=== PATIENT | male | born 1970 | race Caucasian/White ===

== ENCOUNTER 2022-01-27 19:50 | Inpatient (IN) ==
[2022-01-27 20:40] LABS: Appearance Urine Clear (Clear); Bacteria Urine Automated Negative (Negative); Bilirubin Urine Negative (Negative); Blood Urine Trace (Negative); Color Urine Orange; Glucose Urine UA Negative (Negative); Ketones Urine Trace (Negative); Leukocyte Esterase Urine 1+ (Negative); Nitrite Urine Positive (Negative); Protein Urine 3+ (Negative); Specific Gravity Urine 1.026 (1.000-1.030); Urobilinogen Urine Negative (Negative); pH Urine 7.5 (4.5-7.5)
[2022-01-27 20:41] LABS: Basophils # (auto) 0.04 K/uL (0-0.2); Basophils % (auto) 0.2 %; Eosinophils # (auto) 0.02 K/uL (0-0.5); Eosinophils % (auto) 0.1 %; Hematocrit (blood only) 49.9 % (42-52); Immature Granulocytes # (auto) 0.13 K/uL (0.00-0.02); Immature Granulocytes % (auto) 0.6 %; Lymphocytes # (auto) 2.24 K/uL (1.2-3.4); Lymphocytes % (auto) 9.8 %; Mean Corpuscular Hgb Conc 34.1 g/dL (32-36); Mean Corpuscular Volume 91.1 fL (80-100); Mean Platelet Volume 11.4 fL (7.4-10.4); Monocytes # (auto) 1.72 K/uL (0.11-0.59); Monocytes % (auto) 7.5 %; Neutrophils # (auto) 18.66 K/uL (1.4-6.5); Neutrophils % (auto) 81.8 %; Platelet Count 257 K/uL (130-400); RDW Coefficient of Variation 12.9 % (11.5-14.5); RDW Standard Deviation 43.2 fL (36.4-46.3); Red Blood Count 5.48 M/uL (4.7-6.1); White Blood Count 22.81 K/uL (4.8-10.8)
[2022-01-27 21:03] LABS: Albumin Globulin Ratio 1.3 (0.9-2); Albumin Level 4.4 gm/dl (3.4-5.0); Calcium 9.6 mg/dl (8.5-10.1); Creatinine Clr Calc Pharmacy 96.5 ml/min; Est GFR (African American) 86.1 ml/min; Est GFR (Non-African American) 74.3 ml/min; Globulin 3.5 gm/dl (2.5-4.0); Potassium 3.7 mmol/L (3.5-5.1); Total Protein 7.9 gm/dl (6.0-8.3)
[2022-01-27] MEDS ORDERED: ONDANSETRON INJ 2 MG/ML 2 ML VIAL IV STA (21:21)
[2022-01-27] MEDS ORDERED: MoRPHine SULFATE 4 MG/ML 1 ML CARP\\VIAL IV STA (21:54)
[2022-01-27] MEDS ORDERED: ACETAMINOPHEN 1,000 MG/100 ML VIAL IV STA (21:54)
[2022-01-27] MEDS ORDERED: OPTIRAY 320 100ml IV ONE (22:29)
--- NOTE | 2022-01-27 22:47 | CT Scan Report ---
CT SCAN OF THE ABDOMEN AND PELVIS WITH IV CONTRAST CLINICAL HISTORY: Lower abdominal pain. COMPARISON STUDY: No priors. TECHNIQUE: Following the IV administration of 95 cc of Optiray 320, CT scan of the abdomen and pelvi s is performed from the lung bases to the proximal femora. Images are reviewed in the axial, sagittal , and coronal planes. IV contrast was administered without complication. A dose lowering technique wa s utilized adhering to the principles of ALARA. CT DOSE: 1023.43 mGy.cm FINDINGS: Lung bases: The heart is normal in size and without pericardial effusion. The lung bases are clear no ting bibasilar atelectasis. A small hiatal hernia is noted. Liver: The contrast-enhanced liver is enlarged, measuring 21.1 cm in length. The liver demonstrates d iffusely diminished attenuation consistent with severe hepatic steatosis. Fatty sparing is seen adjac ent to gallbladder fossa. There is no intrahepatic biliary ductal dilatation. The hepatic veins and p ortal veins are patent. Gallbladder: Unremarkable. Spleen: Normal in size and attenuation. Pancreas: Unremarkable. Adrenal glands: Unremarkable. Kidneys: The contrast enhanced kidneys are normal in size and without hydronephrosis. The kidneys enh ance symmetrically. A 3.3 cm cyst is noted in the interpolar left kidney. Abdominal vasculature: The abdominal aorta is normal in course and caliber noting scattered foci of a therosclerotic calcification. Bowel: There is moderate to advanced colonic diverticulosis. There is wall thickening with pericoloni c inflammation and surrounding fluid involving the proximal sigmoid colon consistent with severe acut e diverticulitis. There are foci of extraluminal gas about the sigmoid colon seen on images #270, #27 2, and #274 indicating perforation. Phlegmonous change is seen in the left lower quadrant. No organiz ed/drainable fluid collection is identified to indicate abscess. There is no bowel obstruction. The a ppendix is well-visualized and normal. Peritoneum: There is a small amount of free fluid in the left paracolic gutter and the left lower felipa drant. Tiny foci of extraluminal gas are seen in the left lower quadrant as above. Lymphadenopathy: None. Pelvic viscera: The bladder, prostate, and seminal vesicles are normal as visualized. Skeletal structures: There are bilateral pars defects at L5 with grade 1 anterolisthesis and severe d isc space narrowing at L5-S1. No lytic or blastic lesions are seen. IMPRESSION: 1. Findings are consistent with acute perforated diverticulitis of the proximal sigmoid colon as deta iled above. 2. There is phlegmonous change in the right lower quadrant with no organized/drainable fluid collecti on at this time to indicate abscess 3. A small amount of free fluid in the left paracolic gutter and pelvis is likely reactive. 4. Hepatomegaly and severe hepatic steatosis. 5. Additional findings as above. ACT 112: Negative or not required by law. Electronically signed by: Rodger Roberts M.D. 01/27/2022 10:45 PM
[2022-01-27] MEDS ORDERED: PIPERACILLIN/TAZOBACTAM 4.5 GM/120 ML BAG IV ONE (23:14)
[2022-01-27] MEDS ORDERED: PIPERACILL/TAZOBAC CONSULT ACTIVE PRN (23:14)
[2022-01-27] MEDS ORDERED: MoRPHine SULFATE 4 MG/ML 1 ML CARP\\VIAL IV PRN (23:14)
[2022-01-27] MEDS ORDERED: SODIUM CHLORIDE 0.9% 1000ML 1,000 ML IV SCH (23:15)
--- NOTE | 2022-01-27 23:35 | Surgery Consultation ---
Date of Consultation January 27, 2022 Assessment & Plan (1) Diverticulitis: I discussed with the treating emergency room physician and she notes she is planning on having the hospitalist admit the patient. We recommend proceeding as follows: Implement n.p.o. status (patient may have an occasional ice chip only) Provide IV fluid for hydration Provide analgesics Provide antiemetics Implement broad-spectrum antibiotics. The treating emergency room physician has already ordered Zosyn which I recommend continuing Follow serial labs We will monitor the patient's clinical progress. I discussed with him that we would like to avoid emergency surgery as this may require temporary colostomy and if patient does eventually require surgery for recurrent diverticulitis would be preferable to do when he does not have active diverticulitis present. If that is the patient clinically improves we would then consider advancing his diet beginning with clear liquids. If the patient does not clinically improve consideration can be given to reimaging him. Additional recommendations be forthcoming based on his clinical course as it unfolds Supervising Physician Co-Signing Physician Notes I personally saw and evaluated the patient with Angel Grimes PA-C and agree with the assessment and plan 51-year-old male with acute sigmoid diverticulitis with contained perforation CT images and results personally viewed by me, no free air but does have a significant amount of inflammation of the sigmoid as well as a small bit of free fluid in the left paracolic gutter We will plan to admit the patient, keep him n.p.o., start Zosyn and monitor his abdominal exam If he does not improve he may require laparotomy and colostomy History of Present Illness Reason for Consultation: Abdominal pain History of Present Illness This is a 51-year-old male who presented to the emergency department secondary to abdominal pain.Patient says that he began having abdominal pain 1 to 2 days ago and he went to see his primary care physician as he was concerned he had diverticulitis as he has had this in the past. Patient says that he was started on Cipro and Flagyl but this was ineffective at improving his pain and therefore he presented to the emergency department. Patient says that the pain encompasses his entire lower abdomen and is worse with certain movements and feels somewhat better when laying still. He notes that the pain does not radiate. He has had subjective fevers but admits he did not take his temperature. He has had nausea without vomiting. He denies any hematemesis. He denies any diarrhea, bright blood per rectum or melena. As noted the patient has had diverticulitis in the past and the patient says that he has had a colonoscopy within the past 3 years. He notes that to the best of his knowledge the only significant finding on his colonoscopy was diverticulosis. Concerning prior abdominal surgeries the patient notes that he has had an umbilical hernia repair but he is unsure if there is any mesh in his abdomen. Today in the emergency department the patient had labs and imaging which I independently reviewed. He did undergo a CT scan of the abdomen pelvis that showed patient had findings consistent with acute perforated diverticulitis of the proximal sigmoid colon. There were phlegmonous changes noted in the left lower quadrant however no organized double or drainable fluid collection to indicate abscess was noted. Pericolonic inflammation and wall thickening of the proximal sigmoid colon. A tiny foci of extraluminal gas was also noted in the left lower quadrant. Patient CBC showed a white blood cell count of 22.8. His hemoglobin, hematocrit, and platelet count were noted to be normal. Chemistry profile showed sodium was 135. Potassium, BUN, and creatinine were all normal. At the time of my interview patient was in no distress. He did have abdominal pain present with movement. Allergies Allergy/AdvReac Type Severity Reaction Status Date / Time Penicillins Allergy Unknown Rash Verified 01/27/22 23:38 Home Medications Medication Instructions Recorded Confirmed Type losartan 50 mg tablet 50 mg PO DAILY 12/05/21 01/27/22 History pantoprazole 40 mg tablet,delayed 40 mg PO DAILY 12/05/21 01/27/22 History release acetaminophen 500 mg tablet 1,000 mg PO Q6H PRN 01/27/22 01/27/22 History (Tylenol Extra Strength) ascorbic acid (vitamin C) 250 mg 0 mg PO DAILY 01/27/22 01/27/22 History tablet (Vitamin C) cholecalciferol (vitamin D3) 25 0 mcg PO DAILY 01/27/22 01/27/22 History mcg (1,000 unit) tablet (Vitamin D3) ciprofloxacin HCl 500 mg tablet 500 mg PO BID 01/27/22 01/27/22 History coenzyme Q10 30 mg capsule (CoQ-10) 0 mg PO DAILY 01/27/22 01/27/22 History metronidazole 500 mg tablet 500 mg PO Q8 04/29/22 04/29/22 History multivitamin 1 tab PO DAILY 01/27/22 01/27/22 History Patient History Medical History Diverticulosis Enlarged liver Fatigue GERD (gastroesophageal reflux disease) Hiatal hernia HTN (hypertension) Insomnia Psoriasis SLAP (superior labrum from anterior to posterior) tear Surgical History Hx of umbilical hernia repair Family History Father Diabetes Stroke ASCVD (arteriosclerotic cardiovascular disease) Mother Diabetes Hypertension Thyroid disease Grandmother (Maternal) Lymphoma Social History Smoking Status: Never smoker Hx Alcohol Use: No Hx Substance Use: No 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 Real Estate Required: No Beliefs That Will Affect Care: None Current Living Situation: Spouse current occupational status: retired How many Children do You have: 3 Feels Safe at Home: Yes Safety Concerns: Feels Safe At This Time Assistive Devices: Glasses Review of Systems Constitutional: + fever; no chills Eyes: no diplopia Ear, Nose, Mouth, Throat: no ear pain Respiratory: no cough Cardiovascular: no chest pain Gastrointestinal: as per Subjective / HPI, + abdominal pain and + nausea; no vomiting Genitourinary: no dysuria Musculoskeletal: no back pain Integumentary: no rash Neurologic: no localized weakness Physical Exam Constitutional: WD/WN, vitals as above Eyes: no conjunctival abnormality ENMT: Ears: no hearing impairment and no external ear abnormality Mouth: no oropharynx abnormality Neck: trachea midline Respiratory: normal respiratory effort; no respiratory distress and no labored breathing Cardiovascular: Rate/Rhythm: regular rate and regular rhythm Gastrointestinal (Abdomen): Patient's abdomen is mildly distended. Patient has significant tenderness with palpation of the left lower quadrant with some minor rebound tenderness. Not appreciate any masses organomegaly. Bowel sounds are hypoactive. Musculoskeletal: No calf tenderness Skin: no rashes Neurologic: moves all extremities Psychiatric: A+Ox3, euthymic affect Results & Data ([facility]) Vital Signs (Past 12 Hours) Vital Signs Temp Pulse Pulse Resp BP BP Pulse Ox 01/27/22 23:00 37.0 C 116 H 19 128/74 97 01/27/22 21:28 37.1 C 99 H 18 154/124 H 100 01/27/22 20:06 36.8 C 129 H 20 146/90 H 97 PG Care Time/CCT Total # of Minutes Spent Total Time Spent with Patient: Total time spent is greater than 50% in coordination of care (as documented) at patient's floor/unit and/or counseling patient: Coding Level of Care Code 59378 Inpt Consult Level 5 Diagnoses Diverticulitis K57.92
--- NOTE | 2022-01-27 23:36 | Emergency Department Note ---
History of Present Illness General Chief complaint: GI Assessment Stated complaint: ABDOMINAL PAIN, VOMITING Time Seen by Provider: 01/27/22 21:39 Source: patient Mode of arrival: ambulatory Limitations: no limitations History of Present Illness Provider complaint: Abdominal pain Onset (ago): day(s) 2 Location: abdomen Radiation: non-radiation Severity: moderate Pain Consistency: + constant Maximum Pain Intensity: 4 Relieved By: + none Exacerbated By: + movement Associated symptoms: + fever/chills, + loss of appetite and + nausea/vomiting Treatments prior to arrival: other This is a 51-year-old male presents emergency department complaining of abdominal pain. Patient states that his abdominal pain began on . He states he did go to his PCPs it felt similar to prior episodes of diverticulitis and he was started on Cipro and Flagyl. He states typically his symptoms improve after 1 or 2 doses of the antibiotics however his pain has been persistent and he feels worsening. He states while his entire lower abdomen hurts it is most severe in the left lower quadrant. No radiation into the back. Patient has had subjective fevers and chills and some nausea. He states he did try to induce vomiting without any improvement. He denies any diarrhea. He den ies any change in urine. He states he has previously had EGD and colonoscopy. He states it has been several years as he was typically being scoped in [place] every 3 years. He states he is a prior history of hiatal hernia. No other prior abdominal surgery. Patient denies any prior hospitalization for diverticulitis. Pt seen during a time of high acuity and national emergency pandemic while wearing PPE. Home Medications Medication Instructions Recorded Confirmed Type losartan 50 mg tablet 50 mg PO DAILY 12/05/21 01/27/22 History pantoprazole 40 mg tablet,delayed 40 mg PO DAILY 12/05/21 01/27/22 History release acetaminophen 500 mg tablet 1,000 mg PO Q6H PRN 01/27/22 01/27/22 History (Tylenol Extra Strength) ascorbic acid (vitamin C) 250 mg 0 mg PO DAILY 01/27/22 01/27/22 History tablet (Vitamin C) cholecalciferol (vitamin D3) 25 0 mcg PO DAILY 01/27/22 01/27/22 History mcg (1,000 unit) tablet (Vitamin D3) ciprofloxacin HCl 500 mg tablet 500 mg PO BID 01/27/22 01/27/22 History coenzyme Q10 30 mg capsule (CoQ-10) 0 mg PO DAILY 01/27/22 01/27/22 History metronidazole 500 mg tablet 500 mg PO Q8 01/27/22 01/27/22 History multivitamin 1 tab PO DAILY 01/27/22 01/27/22 History Allergies Allergy/AdvReac Type Severity Reaction Status Date / Time Penicillins Allergy Unknown Rash Verified 01/27/22 23:38 Past Med/Surg History Medical History Diverticulosis Enlarged liver Fatigue GERD (gastroesophageal reflux disease) Hiatal hernia HTN (hypertension) Insomnia Psoriasis SLAP (superior labrum from anterior to posterior) tear Surgical History Hx of umbilical hernia repair Family History Father Diabetes Stroke ASCVD (arteriosclerotic cardiovascular disease) Mother Diabetes Hypertension Thyroid disease Grandmother (Maternal) Lymphoma Social History Smoking Status: Never smoker Preferred Language: Israeli current occupational status: retired How many Children do You have: 3 Feels Safe at Home: Yes Review of Systems A total of 10 systems reviewed and were otherwise negative All systems reviewed & are unremarkable except as noted in HPI & below Physical Exam Vital Signs Vital Signs - 24 hr 01/27/22 20:06 01/27/22 21:28 01/27/22 23:00 Temperature 36.8 C 37.1 C 37.0 C Temperature Source Temporal Artery Scan Oral Oral Pulse Rate 129 H Pulse Rate [Finger] 99 H 116 H Pulse Rhythm [Finger] Regular Regular Pulse Strength [Finger] Normal Normal Respiratory Rate 20 18 19 Respiratory Effort / Characteristics Non-Labored Spontaneous Non-Labored Spontaneous Non-Labored Spontaneous Respiratory Depth Normal Normal Normal Respiratory Pattern Regular Blood Pressure 146/90 H Blood Pressure [Right Arm] 154/124 H 128/74 Blood Pressure Mean 108 Blood Pressure Mean [Right Arm] 134 92 Blood Pressure Position Sitting Pulse Oximetry 97 100 97 Oxygen Delivery Method Room Air Room Air Room Air Sepsis Recent Fever Within 48 Hours No Sepsis New/Unexplained Change in Mental Status No Sepsis Action Taken by Nursing No Action Required 01/28/22 00:48 Temperature 36.8 C Temperature Source Oral Pulse Rate Pulse Rate [Finger] 102 H Pulse Rhythm [Finger] Regular Pulse Strength [Finger] Respiratory Rate 16 Respiratory Effort / Characteristics Non-Labored Respiratory Depth Normal Respiratory Pattern Blood Pressure Blood Pressure [Right Arm] 120/66 Blood Pressure Mean Blood Pressure Mean [Right Arm] 84 Blood Pressure Position Pulse Oximetry 95 Oxygen Delivery Method Room Air Sepsis Recent Fever Within 48 Hours Sepsis New/Unexplained Change in Mental Status Sepsis Action Taken by Nursing GENERAL: alert, uncomfortable appearing, well nourished, no distress, non-toxic EYE EXAM: normal conjunctiva, PERRL and EOM's grossly intact OROPHARYNX: no exudate, no erythema, lips, buccal mucosa, and tongue normal and mucous membranes are moist NECK: supple, no nuchal rigidity, no adenopathy, non-tender LUNGS: Clear to auscultation. Normal chest wall mechanics, no w/r/r HEART: no murmurs, S1 normal and S2 normal ABDOMEN: abdomen soft, mild distention, pain with palpation across the lower a bdomen worse in the left lower quad, dull to percussion, decreased bowel sounds, no masses, no rebound or guarding. BACK: Back is symmetrical on inspection and there is no deformity, no midline tenderness, no CVA tenderness. SKIN: no rashes and no bruising UPPER EXTREMITIES: upper extremities are grossly normal. FROM, nml pulses b/l. LOWER EXTREMITIES: No pitting edema. FROM, nml pulses b/l. NEURO EXAM: Normal sensorium, cranial nerves II-XII grossly intact, normal speech, no gross weakness of arms, no gross weakness of legs. Gross sensation intact. Course Course 2325: Discussed with Zheng Motta PA-C, general surgery. 2330: Patient updated on results. 2345: Case discussed with hospitalist. Administered Medications Sodium Chloride (Nss 1000ml) 1,000 mls @ 125 mls/hr IV .Q8H SHARMILA Stop: 02/26/22 23:14 Last Infusion: 01/28/22 01:23 Dose: 0 mls/hr Documented by: [id number] Infusion: 01/28/22 00:42 Dose: 125 mls/hr Documented by: [id number] Admin: 01/27/22 23:27 Dose: 125 mls/hr Documented by: [id number] Lactated Ringer's (Lr) 1,000 mls @ 125 mls/hr IV .Q8H SHARMILA Stop: 02/26/22 23:53 Last Admin: 01/28/22 00:32 Dose: 125 mls/hr Documented by: [id number] Morphine Sulfate (Morphine Sulfate 4 Mg/Ml 1 Ml Carp\Vial) 4 mg IV Q2H PRN PRN Reason: Pain Stop: 02/10/22 23:13 Last Admin: 01/28/22 00:43 Dose: 4 mg Documented by: [id number] Discontinued Medications Acetaminophen (Ofirmev) 1,000 mg in 100 mls @ 400 mls/hr IV NOW STA Stop: 01/27/22 22:08 Last Infusion: 01/27/22 23:09 Dose: 0 mls/hr Documented by: [id number] Admin: 01/27/22 22:16 Dose: 400 mls/hr Documented by: [id number] Piperacillin Sod/Tazobactam Sod (Zosyn) 4.5 gm in 120 mls @ 240 mls/hr IV NOW ONE Stop: 01/27/22 23:43 Last Infusion: 01/28/22 00:04 Dose: 0 mls/hr Documented by: [id number] Admin: 01/27/22 23:27 Dose: 240 mls/hr Documented by: [id number] Ioversol (Optiray 320 100ml) 95 ml IV ONCE ONE Stop: 01/27/22 22:30 Last Admin: 01/27/22 22:30 Dose: 95 ml Documented by: [id number] Morphine Sulfate (Morphine Sulfate 4 Mg/Ml 1 Ml Carp\Vial) 4 mg IV NOW STA Stop: 01/27/22 21:55 Last Admin: 01/27/22 22:16 Dose: 4 mg Documented by: [id number] Ondansetron HCl (Ondansetron Inj 2 Mg/Ml 2 Ml Vial) 4 mg IV NOW STA Stop: 01/27/22 21:22 Last Admin: 01/27/22 21:27 Dose: 4 mg Documented by: [id number] Medical Decision Making Differential Diagnosis Differential diagnoses includes but is not limited to gastritis, peptic ulcer disease, GERD, gallbladder disease, pancreatitis, small bowel obstruction, acute coronary syndrome, pericarditis, ischemic bowel, irritable bowel disease, irritable bowel syndrome, appendicitis, diverticulitis, malignancy, hernia, urinary tract infection, torsion, [/ectopic (if female)], perforation, trauma, infectious. Medical Records Attestation: I reviewed the patient's medical records. Home Medications Current Medication List: was personally reviewed by me Laboratory Data Attestation: I reviewed the patient's lab results. Result diagrams: 01/27/22 20:24 01/27/22 20:24 Lab Results 01/27/22 01/27/22 01/27/22 Range/Units 20:19 20:24 20:24 WBC 22.81 H (4.8-10.8) K/uL RBC 5.48 (4.7-6.1) M/uL Hgb 17.0 (14.0-18.0) g/dL Hct 49.9 (42-52) % MCV 91.1 (80-100) fL MCH 31.0 (25-34) pg MCHC 34.1 (32-36) g/dL RDW Std Deviation 43.2 (36.4-46.3) fL RDW Coeff of Fredrick 12.9 (11.5-14.5) % Plt Count 257 (130-400) K/uL MPV 11.4 H (7.4-10.4) fL Immature Gran % (Auto) 0.6 % Neut % (Auto) 81.8 % Lymph % (Auto) 9.8 % Holmes % (Auto) 7.5 % Eos % (Auto) 0.1 % Baso % (Auto) 0.2 % Neut # (Auto) 18.66 H (1.4-6.5) K/uL Lymph # (Auto) 2.24 (1.2-3.4) K/uL Holmes # (Auto) 1.72 H (0.11-0.59) K/uL Eos # (Auto) 0.02 (0-0.5) K/uL Baso # (Auto) 0.04 (0-0.2) K/uL Immature Gran # (Auto) 0.13 H (0.00-0.02) K/uL Sodium 135 L (136-145) mmol/L Potassium 3.7 (3.5-5.1) mmol/L Chloride 99 (98-107) mmol/L Carbon Dioxide 27 (21-32) mmol/L Anion Gap 9 (3-11) BUN 17 (6-23) mg/dl Creatinine 1.13 (0.6-1.4) mg/dl Est Cr Clr Drug Dosing 96.5 ml/min Est GFR ( Amer) 86.1 ml/min Est GFR (Non-Af Amer) 74.3 ml/min BUN/Creatinine Ratio 15.0 (10-20) Glucose 109 H (70-99(Fasting)) mg/dl Calcium 9.6 (8.5-10.1) mg/dl Total Bilirubin 3.0 H (0.2-1.0) mg/dl AST 27 (13-39) U/L ALT 56 H (7-52) U/L Alkaline Phosphatase 61 (34-104) U/L Total Protein 7.9 (6.0-8.3) gm/dl Albumin 4.4 (3.4-5.0) gm/dl Globulin 3.5 (2.5-4.0) gm/dl Albumin/Globulin Ratio 1.3 (0.9-2) Lipase 12 (11-82) U/L Urine Color [place] Urine Appearance Clear (Clear) Urine pH 7.5 (4.5-7.5) Ur Specific [place] 1.026 (1.000-1.030) Urine Protein 3+ H (Negative) Urine Glucose (UA) Negative (Negative) Urine Ketones Trace H (Negative) Urine Blood Trace H (Negative) Urine Nitrite Positive A (Negative) Urine Bilirubin Negative (Negative) Urine Urobilinogen Negative (Negative) Ur Leukocyte Esterase 1+ H (Negative) Urine WBC (Auto) 1-5 (0-5) /hpf Urine RBC (Auto) 10-30 H (0-4) /hpf U Hyaline Cast (Auto) 1-5 (0-5) /lpf U Epithel Cells (Auto) 10-20 H (0-5) /lpf Urine Bacteria (Auto) Negative (Negative) SARS-CoV-2, RNA, NAAT (NEGATIVE) 01/27/22 Range/Units 23:42 WBC (4.8-10.8) K/uL RBC (4.7-6.1) M/uL Hgb (14.0-18.0) g/dL Hct (42-52) % MCV (80-100) fL MCH (25-34) pg MCHC (32-36) g/dL RDW Std Deviation (36.4-46.3) fL RDW Coeff of Fredrick (11.5-14.5) % Plt Count (130-400) K/uL MPV (7.4-10.4) fL Immature Gran % (Auto) % Neut % (Auto) % Lymph % (Auto) % Holmes % (Auto) % Eos % (Auto) % Baso % (Auto) % Neut # (Auto) (1.4-6.5) K/uL Lymph # (Auto) (1.2-3.4) K/uL Holmes # (Auto) (0.11-0.59) K/uL Eos # (Auto) (0-0.5) K/uL Baso # (Auto) (0-0.2) K/uL Immature Gran # (Auto) (0.00-0.02) K/uL Sodium (136-145) mmol/L Potassium (3.5-5.1) mmol/L Chloride (98-107) mmol/L Carbon Dioxide (21-32) mmol/L Anion Gap (3-11) BUN (6-23) mg/dl Creatinine (0.6-1.4) mg/dl Est Cr Clr Drug Dosing ml/min Est GFR ( Amer) ml/min Est GFR (Non-Af Amer) ml/min BUN/Creatinine Ratio (10-20) Glucose (70-99(Fasting)) mg/dl Calcium (8.5-10.1) mg/dl Total Bilirubin (0.2-1.0) mg/dl AST (13-39) U/L ALT (7-52) U/L Alkaline Phosphatase (34-104) U/L Total Protein (6.0-8.3) gm/dl Albumin (3.4-5.0) gm/dl Globulin (2.5-4.0) gm/dl Albumin/Globulin Ratio (0.9-2) Lipase (11-82) U/L Urine Color Urine Appearance (Clear) Urine pH (4.5-7.5) Ur Specific [place] (1.000-1.030) Urine Protein (Negative) Urine Glucose (UA) (Negative) Urine Ketones (Negative) Urine Blood (Negative) Urine Nitrite (Negative) Urine Bilirubin (Negative) Urine Urobilinogen (Negative) Ur Leukocyte Esterase (Negative) Urine WBC (Auto) (0-5) /hpf Urine RBC (Auto) (0-4) /hpf U Hyaline Cast (Auto) (0-5) /lpf U Epithel Cells (Auto) (0-5) /lpf Urine Bacteria (Auto) (Negative) SARS-CoV-2, RNA, NAAT NEGATIVE (NEGATIVE) Imaging Data Radiologist's Impression: Abdomen/Pelvis CT 01/27/22 21:54 CT SCAN OF THE ABDOMEN AND PELVIS WITH IV CONTRAST CLINICAL HISTORY: Lower abdominal pain. COMPARISON STUDY: No priors. TECHNIQUE: Following the IV administration of 95 cc of Optiray 320, CT scan of the abdomen and pelvis is performed from the lung bases to the proximal femora. Images are reviewed in the axial, sagittal, and coronal planes. IV contrast was administered without complication. A dose lowering technique was utilized adhering to the principles of ALARA. CT DOSE: 1023.43 mGy.cm FINDINGS: Lung bases: The heart is normal in size and without pericardial effusion. The lung bases are clear noting bibasilar atelectasis. A small hiatal hernia is noted. Liver: The contrast-enhanced liver is enlarged, measuring 21.1 cm in length. The liver demonstrates diffusely diminished attenuation consistent with severe hepatic steatosis. Fatty sparing is seen adjacent to gallbladder fossa. There is no intrahepatic biliary ductal dilatation. The hepatic veins and portal veins are patent. Gallbladder: Unremarkable. Spleen: Normal in size and attenuation. Pancreas: Unremarkable. Adrenal glands: Unremarkable. Kidneys: The contrast enhanced kidneys are normal in size and without hydronephrosis. The kidneys enhance symmetrically. A 3.3 cm cyst is noted in the interpolar left kidney. Abdominal vasculature: The abdominal aorta is normal in course and caliber noting scattered foci of atherosclerotic calcification. Bowel: There is moderate to advanced colonic diverticulosis. There is wall thickening with pericolonic inflammation and surrounding fluid involving the p roximal sigmoid colon consistent with severe acute diverticulitis. There are foci of extraluminal gas about the sigmoid colon seen on images #270, #272, and #274 indicating perforation. Phlegmonous change is seen in the left lower quadrant. No organized/drainable fluid collection is identified to indicate abscess. There is no bowel obstruction. The appendix is well-visualized and normal. Peritoneum: There is a small amount of free fluid in the left paracolic gutter and the left lower quadrant. Tiny foci of extraluminal gas are seen in the left lower quadrant as above. Lymphadenopathy: None. Pelvic viscera: The bladder, prostate, and seminal vesicles are normal as visualized. Skeletal structures: There are bilateral pars defects at L5 with grade 1 anterolisthesis and severe disc space narrowing at L5-S1. No lytic or blastic lesions are seen. IMPRESSION: 1. Findings are consistent with acute perforated diverticulitis of the proximal sigmoid colon as detailed above. 2. There is phlegmonous change in the right lower quadrant with no organized/drainable fluid collection at this time to indicate abscess 3. A small amount of free fluid in the left paracolic gutter and pelvis is likely reactive. 4. Hepatomegaly and severe hepatic steatosis. 5. Additional findings as above. ACT 112: Negative or not required by law. Electronically signed by: Rodger Roberts M.D. 01/27/2022 10:45 PM MDM Narrative This is a 51-year-old male who presents emergency department with complaints of abdominal pain. Patient was recently started on antibiotics for presumed diverticulitis as he has had similar symptoms with this diagnosis previously. Patient has had follow-up EGD/colonoscopy. Patient was uncomfortable appearing here, however hemodynamically stable and afebrile. Labs have been drawn and sent per nursing protocol prior to my evaluation. Patient found to have a significant leukocytosis of 22. Patient sent for CT imaging due to concern for complicated diverticulitis or additional intra-abdominal process. Patient found to have diverticulitis with local perforation and evolving phlegmon. No drainable fluid collection per CT result. Patient made aware of all results. Case discussed with general surgery physician billing and accounting staff assistant who evaluated the patient at bedside as well as with the hospitalist. Patient was given a dose of IV Zosyn as he stated his listed allergy was unknown and he was told this occurred when he was an infant. An order was placed for continuous cardiac monitoring. The monitor shows a rate of _98_ with _normal sinus_ rhythm. Impression & Plan Abdominal pain, Diverticulitis Discharge Plan Visit Data Chief Complaint: GI Assessment Stated Complaint: ABDOMINAL PAIN, VOMITING ED Provider: Nanci Wren Discharge Problem: Abdominal pain, Diverticulitis Forms Stand Alone Forms: My [employer] Prescriptions Prescriptions: No Action losartan 50 mg tablet 50 mg PO DAILY RF: 0 pantoprazole 40 mg tablet,delayed release (DR/EC) 40 mg PO DAILY RF: 0 multivitamin Tablet 1 tab PO DAILY RF: 0 metronidazole 500 mg tablet 500 mg PO Q8 RF: 0 ciprofloxacin HCl 500 mg tablet 500 mg PO BID RF: 0 acetaminophen [Tylenol Extra Strength] 500 mg Tablet 1,000 mg PO Q6H PRN (Reason: Pain) RF: 0 ascorbic acid (vitamin C) [Vitamin C] 250 mg Tablet 0 mg PO DAILY RF: 0 coenzyme Q10 [CoQ-10] 30 mg Capsule 0 mg PO DAILY RF: 0 cholecalciferol (vitamin D3) [Vitamin D3] 25 mcg (1,000 unit) Tablet 0 mcg PO DAILY RF: 0 Referrals Referrals: Goyo Merrill MD [Primary Care Provider] - Discharge Problem: Abdominal pain Qualifiers: Abdominal location: lower abdomen, unspecified Qualified Code(s): R10.30 - Lower abdominal pain, unspecified
[2022-01-28] MEDS: LACTATED RINGER'S 1,000 ML IV SCH ×4 (00:32→21:02)
[2022-01-28] MEDS ORDERED: hydrALAZINE HCL 20 MG/ML VIAL IV PRN ×2 (01:13→14:29)
[2022-01-28] MEDS ORDERED: ACETAMINOPHEN 1,000 MG/100 ML VIAL IV PRN (03:46)
[2022-01-28] MEDS: MoRPHine SULFATE 4 MG/ML 1 ML CARP\\VIAL IV PRN ×4 (04:21→19:54)
[2022-01-28] MEDS: metroNIDAZOLE 500 MG/100 ML BAG IV SCH ×3 (04:23→20:00)
[2022-01-28] MEDS ORDERED: METOPROLOL TARTRATE 50 MG TAB PO PRN (04:28)
--- NOTE | 2022-01-28 04:30 | Hospitalist Consultation ---
Date of Consultation January 28, 2022 Assessment & Plan (1) Perforation of sigmoid colon due to diverticulitis: Acute perforated sigmoid diverticulitis with phlegmon- Per primary surgical service HPM and Flagyl IV LR 125 mils per hour (2) Phlegmon: (3) GERD (gastroesophageal reflux disease): Would change oral pantoprazole to famotidine 20 mg IV every 12 hours (4) HTN (hypertension): Hold losartan Place on hydralazine 10 mg IV every 4 hours as needed systolic blood pressure greater than 160 if heart rate less than [address] on metoprolol tartrate 50 mg p.o. twice daily if systolic blood pressure greater than 160 and heart rate greater than 80 History of Present Illness Reason for Consultation: Management of hypertension Requesting Physician: Andres Motta DO Attending Physician: Andres Motta DO History of Present Illness The patient is a 51-year-old male who presented to the emergency department with 2 days of abdominal pain, nausea and vomiting. He has had the symptoms like this in the past with episodes of diverticulitis, however, they would typically resolve within a day or 2 of starting antibiotics, and would never be this intense and long-lasting. CT scan of the emergency department was consistent with an acute perforated diverticulitis of the proximal sigmoid colon, with phlegmonous change in the right lower quadrant with no organized or drainable fluid collection at the present time to indicate abscess. Allergies Allergy/AdvReac Type Severity Reaction Status Date / Time Penicillins Allergy Unknown Rash Verified 01/27/22 23:38 Home Medications Medication Instructions Recorded Confirmed Type losartan 50 mg tablet 50 mg PO DAILY 12/05/21 01/27/22 History pantoprazole 40 mg tablet,delayed 40 mg PO DAILY 12/05/21 01/27/22 History release acetaminophen 500 mg tablet 1,000 mg PO Q6H PRN 01/27/22 01/27/22 History (Tylenol Extra Strength) ascorbic acid (vitamin C) 250 mg 0 mg PO DAILY 01/27/22 01/27/22 History tablet (Vitamin C) cholecalciferol (vitamin D3) 25 0 mcg PO DAILY 01/27/22 01/27/22 History mcg (1,000 unit) tablet (Vitamin D3) ciprofloxacin HCl 500 mg tablet 500 mg PO BID 01/27/22 01/27/22 History coenzyme Q10 30 mg capsule (CoQ-10) 0 mg PO DAILY 01/27/22 01/27/22 History metronidazole 500 mg tablet 500 mg PO Q8 01/27/22 01/27/22 History multivitamin 1 tab PO DAILY 01/27/22 01/27/22 History Patient History Medical History Diverticulosis Enlarged liver Fatigue GERD (gastroesophageal reflux disease) Hiatal hernia HTN (hypertension) Insomnia Psoriasis SLAP (superior labrum from anterior to posterior) tear Surgical History Hx of umbilical hernia repair Family History Father Diabetes Stroke ASCVD (arteriosclerotic cardiovascular disease) Mother Diabetes Hypertension Thyroid disease Grandmother (Maternal) Lymphoma Social History Smoking Status: Never smoker Hx Alcohol Use: No Hx Substance Use: No Preferred Language: Mongolian [employer] Required: No Beliefs That Will Affect Care: None Current Living Situation: Spouse current occupational status: retired How many Children do You have: 3 Feels Safe at Home: Yes Safety Concerns: Feels Safe At This Time Assistive Devices: Glasses Review of Systems Review of Systems: The patient denies chest pain, palpitations, shortness of breath, dyspnea on exertion, cough, lower extremity swelling, sore throat, fevers, chills, sweats, blood in urine or stool, dysuria, urinary frequency or urgency, memory loss, loss of consciousness, rash, abnormal bruising or bleeding, imbalance, focal or generalized weakness, numbness or tingling in arms or legs, generalized arthralgias or myalgias, neck pain, or night sweats. The review of systems is otherwise negative other than for that already noted above, and at least 10 systems have been reviewed. Physical Exam Physical Exam: The patient is awake, alert and oriented 3, well developed and well nourished, normocephalic and atraumatic, lying in bed and in no acute d istress. HEENT--PERRL, EOMI, mucous membranes and oropharynx dry. Neck--supple. No JVD. No bruits. Thyroid normal, trachea midline, no adenopathy. Heart--normal S1 and S2. No murmurs, rubs or gallops. Lungs--clear bilaterally, no respiratory distress, no accessory muscle use. Abdomen--normal bowel sounds and soft. Tender left lower and mid lower abdomen and pelvis Extremities--no cyanosis or clubbing. No edema. Dermatologic--normal skin turgor, normal color, no abnormal lymph nodes, no rash. Neurologic--cranial nerves II through XII grossly intact. Rheumatologic--normal range of motion. Psychiatric--normal affect. Results & Data Results & Data ([facility]) Vital Signs (Past 12 Hours) Vital Signs Temp Pulse Pulse Resp BP BP Pulse Ox 01/28/22 03:45 37.7 C H 112 H 18 147/89 H 97 01/28/22 03:21 103 H 16 121/76 93 01/28/22 02:31 104 H 20 94 01/28/22 00:48 36.8 C 102 H 16 120/66 95 01/27/22 23:00 37.0 C 116 H 19 128/74 97 01/27/22 21:28 37.1 C 99 H 18 154/124 H 100 01/27/22 20:06 36.8 C 129 H 20 146/90 H 97 Laboratory Results Laboratory Results WBC 22.81 K/uL (4.8-10.8) H 01/27/22 20:24 RBC 5.48 M/uL (4.7-6.1) 01/27/22 20:24 Hgb 17.0 g/dL (14.0-18.0) 01/27/22 20:24 Hct 49.9 % (42-52) 01/27/22 20:24 MCV 91.1 fL (80-100) 01/27/22 20:24 MCH 31.0 pg (25-34) 01/27/22 20:24 MCHC 34.1 g/dL (32-36) 01/27/22 20:24 RDW Std Deviation 43.2 fL (36.4-46.3) 01/27/22 20:24 RDW Coeff of Fredrick 12.9 % (11.5-14.5) 01/27/22 20:24 Plt Count 257 K/uL (130-400) 01/27/22 20:24 MPV 11.4 fL (7.4-10.4) H 01/27/22 20:24 Immature Gran % (Auto) 0.6 % 01/27/22 20:24 Neut % (Auto) 81.8 % 01/27/22 20:24 Lymph % (Auto) 9.8 % 01/27/22 20:24 [place] % (Auto) 7.5 % 01/27/22 20:24 Eos % (Auto) 0.1 % 01/27/22 20:24 Baso % (Auto) 0.2 % 01/27/22 20:24 Neut # (Auto) 18.66 K/uL (1.4-6.5) H 01/27/22 20:24 Lymph # (Auto) 2.24 K/uL (1.2-3.4) 01/27/22 20:24 [place] # (Auto) 1.72 K/uL (0.11-0.59) H 01/27/22 20:24 Eos # (Auto) 0.02 K/uL (0-0.5) 01/27/22 20:24 Baso # (Auto) 0.04 K/uL (0-0.2) 01/27/22 20:24 Immature Gran # (Auto) 0.13 K/uL (0.00-0.02) H 01/27/22 20:24 Sodium 135 mmol/L (136-145) L 01/27/22 20:24 Potassium 3.7 mmol/L (3.5-5.1) 01/27/22 20:24 Chloride 99 mmol/L (98-107) 01/27/22:24 Carbon Dioxide 27 mmol/L (21-32) 01/27/22 20:24 Anion Gap 9 (3-11) 01/27/22 20:24 BUN 17 mg/dl (6-23) 01/27/22 20:24 Creatinine 1.13 mg/dl (0.6-1.4) 01/27/22 20:24 Est Cr Clr Drug Dosing 96.5 ml/min 01/27/22 20:24 Est GFR ( Amer) 86.1 ml/min 01/27/22 20:24 Est GFR (Non-Af Amer) 74.3 ml/min 01/27/22 20:24 BUN/Creatinine Ratio 15.0 (10-20) 01/27/22 20:24 Glucose 109 mg/dl (70-99(Fasting)) H 01/27/22 20:24 Calcium 9.6 mg/dl (8.5-10.1) 01/27/22 20:24 Total Bilirubin 3.0 mg/dl (0.2-1.0) H 01/27/22 20:24 AST 27 U/L (13-39) 01/27/22 20:24 ALT 56 U/L (7-52) H 01/27/22 20:24 Alkaline Phosphatase 61 U/L (34-104) 01/27/22 20:24 Total Protein 7.9 gm/dl (6.0-8.3) 01/27/22 20:24 Albumin 4.4 gm/dl (3.4-5.0) 01/27/22 20:24 Globulin 3.5 gm/dl (2.5-4.0) 01/27/22 20:24 Albumin/Globulin Ratio 1.3 (0.9-2) 01/27/22 20:24 Lipase 12 U/L (11-82) 01/27/22 20:24 Urine Color [place] 01/27/22 20:19 Urine Appearance Clear (Clear) 01/27/22 20:19 Urine pH 7.5 (4.5-7.5) 01/27/22 20:19 Ur Specific [place] 1.026 (1.000-1.030) 01/27/22 20:19 Urine Protein 3+ (Negative) H 01/27/22 20:19 Urine Glucose (UA) Negative (Negative) 01/27/22 20:19 Urine Ketones Trace (Negative) H 01/27/22 20:19 Urine Blood Trace (Negative) H 01/27/22 20:19 Urine Nitrite Positive (Negative) A 01/27/22 20:19 Urine Bilirubin Negative (Negative) 01/27/22 20:19 Urine Urobilinogen Negative (Negative) 01/27/22 20:19 Ur Leukocyte Esterase 1+ (Negative) H 01/27/22 20:19 Urine WBC (Auto) 1-5 /hpf (0-5) 01/27/22 20:19 Urine RBC (Auto) 10-30 /hpf (0-4) H 01/27/22 20:19 U Hyaline Cast (Auto) 1-5 /lpf (0-5) 01/27/22 20:19 U Epithel Cells (Auto) 10-20 /lpf (0-5) H 01/27/22 20:19 Urine Bacteria (Auto) Negative (Negative) 01/27/22 20:19 SARS-CoV-2, RNA, NAAT NEGATIVE (NEGATIVE) 01/27/22 23:42 Impressions Abdomen/Pelvis CT 01/27/22 21:54 CT SCAN OF THE ABDOMEN AND PELVIS WITH IV CONTRAST CLINICAL HISTORY: Lower abdominal pain. COMPARISON STUDY: No priors. TECHNIQUE: Following the IV administration of 95 cc of Optiray 320, CT scan of the abdomen and pelvis is performed from the lung bases to the proximal femora. Images are reviewed in the axial, sagittal, and coronal planes. IV contrast was administered without complication. A dose lowering technique was utilized adhering to the principles of ALARA. CT DOSE: 1023.43 mGy.cm FINDINGS: Lung bases: The heart is normal in size and without pericardial effusion. The lung bases are clear noting bibasilar atelectasis. A small hiatal hernia is noted. Liver: The contrast-enhanced liver is enlarged, measuring 21.1 cm in length. The liver demonstrates diffusely diminished attenuation consistent with severe hepatic steatosis. Fatty sparing is seen adjacent to gallbladder fossa. There is no intrahepatic biliary ductal dilatation. The hepatic veins and portal veins are patent. Gallbladder: Unremarkable. Spleen: Normal in size and attenuation. Pancreas: Unremarkable. Adrenal glands: Unremarkable. Kidneys: The contrast enhanced kidneys are normal in size and without hydronephrosis. The kidneys enhance symmetrically. A 3.3 cm cyst is noted in the interpolar left kidney. Abdominal vasculature: The abdominal aorta is normal in course and caliber noting scattered foci of atherosclerotic calcification. Bowel: There is moderate to advanced colonic diverticulosis. There is wall thickening with pericolonic inflammation and surrounding fluid involving the proximal sigmoid colon consistent with severe acute diverticulitis. There are foci of extraluminal gas about the sigmoid colon seen on images #270, #272, and #274 indicating perforation. Phlegmonous change is seen in the left lower quadrant. No organized/drainable fluid collection is identified to indicate abscess. There is no bowel obstruction. The appendix is well-visualized and normal. Peritoneum: There is a small amount of free fluid in the left paracolic gutter and the left lower quadrant. Tiny foci of extraluminal gas are seen in the left lower quadrant as above. Lymphadenopathy: None. Pelvic viscera: The bladder, prostate, and seminal vesicles are normal as visualized. Skeletal structures: There are bilateral pars defects at L5 with grade 1 anterolisthesis and severe disc space narrowing at L5-S1. No lytic or blastic lesions are seen. IMPRESSION: 1. Findings are consistent with acute perforated diverticulitis of the proximal sigmoid colon as detailed above. 2. There is phlegmonous change in the right lower quadrant with no organized/drainable fluid collection at this time to indicate abscess 3. A small amount of free fluid in the left paracolic gutter and pelvis is likely reactive. 4. Hepatomegaly and severe hepatic steatosis. 5. Additional findings as above. ACT 112: Negative or not required by law. Electronically signed by: Rodger Roberts M.D. 01/27/2022 10:45 PM PG Care Time/CCT Total # of Minutes Spent Total Time Spent with Patient: Total time spent is greater than 50% in coordination of care (as documented) at patient's floor/unit and/or counseling patient: Coding Level of Care Code 56220 Inpt Consult Level 3 Diagnoses Phlegmon L02.91 Perforation of sigmoid colon due to diverticulitis K57.20 GERD (gastroesophageal reflux disease) K21.9 HTN (hypertension) I10
--- NOTE | 2022-01-28 05:25 | Surgery Progress Note ---
Date of Service January 28, 2022 Assessment & Plan (1) Diverticulitis: Plan: Due to the patient's clinical presentation, labs, and imaging he has been admitted to the hospital. We will continue to proceed as follows: Continue n.p.o. status (patient may have an occasional ice chip only) Continue IV fluid for hydration Continue analgesics Continue antiemetics Continue broad-spectrum antibiotics. Patient did receive a dose of Zosyn in the emergency department but he has a noted penicillin allergy and is unsure of the reaction. I discussed with pharmacy last evening and his antibiotics were changed to aztreonam and Flagyl which we will continue Follow serial labs Decision about performing any repeat imaging will be based on patient's clinical status For the present time we will use SCDs for DVT prevention until we are certain no procedural intervention will be performed Admission and Anticipated Discharge Date Admission Date: January 27, 2022 Supervising Physician Co-Signing Physician Notes I personally saw and evaluated the patient with Angel Grimes PA-C and agree with the assessment and plan 51-year-old male with acute sigmoid diverticulitis with contained perforation White blood cell count from 22 down to 17 today He does have some low-grade fevers and mild tachycardia which will need to be monitored Abdominal exam with left-sided tenderness and guarding Continue to keep n.p.o. and give IV antibiotics and monitor his vital signs and abdominal exam He still may need laparotomy and colostomy if he does not improve or worsens clinically Subjective Patient is resting comfortably in bed. He continues to have pain which is most severe in the left lower quadrant but does note that it feels slightly improved since admission. He is not passing flatus and has not had a bowel movement since admission. He denies any nausea vomiting. He reports she had 1 low-grade fever since admission but this has resolved. Physical Exam Gastrointestinal (Abdomen): Abdomen is mildly distended. Bowel sounds are hypoactive. Patient does have continued abdominal pain in the left lower quadrant with palpation similar to what was noted at time of admission but slightly less severe. Results & Data ([facility]) Vital Signs (Past 12 Hours) Vital Signs Temp Pulse Pulse Resp BP BP Pulse Ox 01/28/22 03:45 37.7 C H 112 H 18 147/89 H 97 01/28/22 03:21 103 H 16 121/76 93 01/28/22 02:31 104 H 20 94 01/28/22 00:48 36.8 C 102 H 16 120/66 95 01/27/22 23:00 37.0 C 116 H 19 128/74 97 01/27/22 21:28 37.1 C 99 H 18 154/124 H 100 01/27/22 20:06 36.8 C 129 H 20 146/90 H 97 PG Care Time/CCT Total # of Minutes Spent Total Time Spent with Patient: Total time spent is greater than 50% in coordination of care (as documented) at patient's floor/unit and/or counseling patient: Coding Level of Care Code 34029 Subseq Hosp Care Lvl 1 Diagnoses Diverticulitis K57.92
[2022-01-28] MEDS: FAMOTIDINE 20 MG in SYRINGE 3 ML IV SCH ×2 (05:31→21:03)
[2022-01-28] MEDS ORDERED: AZTREONAM 2,000 MG in DEXTROSE 5% 100 ML IV SCH (06:00)
[2022-01-28 06:37] LABS: Basophils # (auto) 0.05 K/uL (0-0.2); Basophils % (auto) 0.3 %; Eosinophils # (auto) 0.07 K/uL (0-0.5); Eosinophils % (auto) 0.4 %; Hematocrit (blood only) 42.6 % (42-52); Hemoglobin 14.7 g/dL (14.0-18.0); Immature Granulocytes # (auto) 0.06 K/uL (0.00-0.02); Immature Granulocytes % (auto) 0.3 %; Lymphocytes # (auto) 2.01 K/uL (1.2-3.4); Lymphocytes % (auto) 11.7 %; Mean Corpuscular Hgb Conc 34.5 g/dL (32-36); Mean Corpuscular Volume 89.9 fL (80-100); Mean Platelet Volume 10.7 fL (7.4-10.4); Monocytes # (auto) 1.38 K/uL (0.11-0.59); Neutrophils % (auto) 79.3 %; Platelet Count 176 K/uL (130-400); RDW Coefficient of Variation 12.9 % (11.5-14.5); RDW Standard Deviation 42.3 fL (36.4-46.3); Red Blood Count 4.74 M/uL (4.7-6.1); White Blood Count 17.17 K/uL (4.8-10.8)
[2022-01-28 07:07] LABS: BUN Creatinine Ratio 15.7 (10-20); Calcium 8.6 mg/dl (8.5-10.1); Creatinine Clr Calc Pharmacy 107.2 ml/min; Est GFR (African American) 97.5 ml/min; Est GFR (Non-African American) 84.1 ml/min
[2022-01-28] MEDS ORDERED: LOSARTAN POTASSIUM 50 MG TAB PO SCH (09:00)
--- NOTE | 2022-01-28 09:52 | Hospitalist Progress Note ---
Date of Service January 28, 2022 Assessment & Plan (1) Perforation of sigmoid colon due to diverticulitis: Plan: Acute perforated sigmoid diverticulitis with phlegmon- WBC improving Continue LR 125 mils per hour NPO Recommend switching aztreonam to cefepime and continuing metronidazole. Patient to have pencillin allergy testing as outpatient as tolerated a dose ao Zosyn without any reaction. (2) Phlegmon: (3) GERD (gastroesophageal reflux disease): Plan: Continue famotidine 20 mg IV every 12 hourly (4) HTN (hypertension): Plan: Hold losartan. Hydralazine 10 mg IV every 4 hourly as needed for systolic blood pressure greater than 180. (5) Tachycardia: Plan: Secondary to underlying diverticulitis. EKG with sinus tachycardia and right bundle branch block. Plan: VTE Prophylaxis - low risk, deferred due to high risk surgical candidate Diet - continue NPO Disposition - continued admission to med/surg Admission and Anticipated Discharge Date Admission Date: January 27, 2022 Subjective Reports improvement and abdominal pain, worse on palpation and left lower qu adrant but none at rest. T max this morning 37.7 C -patient did not feel this. Nausea on admission but resolved today. Last bowel movement on . Passing gas. Review of Systems Review of Systems: All systems reviewed & are unremarkable except as noted in Subjective Physical Exam Constitutional: WD/WN, vitals as above Respiratory: normal respiratory effort, lungs clear to auscultation Cardiovascular: Rate/Rhythm: regular rhythm and + tachycardic Heart Sounds: no murmur Extremities: normal capillary refill; no calf tenderness and no pedal edema Gastrointestinal (Abdomen): Inspection/Auscultation: normal bowel sounds Percussion/Palpation: abdomen soft (LLQ without guarding or rebound tenderness); abdomen nontender and abdomen not rigid Musculoskeletal: no cyanosis or clubbing, extremities motor strength 5/5 Skin: no rashes, warm and dry Neurologic: moves all extremities and awake; not confused Psychiatric: A+Ox3, euthymic affect Results & Data Results & Data ([facility]) Vital Signs (Past 12 Hours) Vital Signs Temp Pulse Resp BP Pulse Ox 01/28/22 07:18 37.6 C H 114 H 18 120/81 94 01/28/22 03:45 37.7 C H 112 H 18 147/89 H 97 01/28/22 03:21 103 H 16 121/76 93 01/28/22 02:31 104 H 20 94 01/28/22 00:48 36.8 C 102 H 16 120/66 95 01/27/22 23:00 37.0 C 116 H 19 128/74 97 PG Care Time/CCT Total # of Minutes Spent Total Time Spent with Patient: Total time spent is greater than 50% in coordination of care (as documented) at patient's floor/unit and/or counseling patient: Coding Level of Care Code 65571 Subseq Hosp Care Lvl 2 Diagnoses Perforation of sigmoid colon due to diverticulitis K57.20 Phlegmon L02.91 GERD (gastroesophageal reflux disease) K21.9 HTN (hypertension) I10 Tachycardia R00.0
[2022-01-28] MEDS: CEFEPIME 2,000 MG in SYRINGE 0 ML IV SCH (14:31)
[2022-01-28] MEDS: ONDANSETRON INJ 2 MG/ML 2 ML VIAL IV PRN (16:15)
[2022-01-28] MEDS ORDERED: diphenhydrAMINE 50 MG/ML VIAL IV STA (19:52)
[2022-01-29] MEDS: CEFEPIME 2,000 MG in SYRINGE 0 ML IV SCH ×2 (01:30→12:54)
[2022-01-29] MEDS: LACTATED RINGER'S 1,000 ML IV SCH ×3 (04:57→21:13)
[2022-01-29] MEDS: metroNIDAZOLE 500 MG/100 ML BAG IV SCH ×3 (04:58→20:02)
--- NOTE | 2022-01-29 05:15 | Surgery Progress Note ---
Date of Service January 29, 2022 Assessment & Plan (1) Diverticulitis: Plan: Due to the patient's clinical presentation, labs, and imaging he has been admitted to the hospital. We will continue to proceed as follows: Continue n.p.o. status (patient may have an occasional ice chip only) Continue IV fluid for hydration Continue analgesics Continue antiemetics Continue broad-spectrum antibiotics. Patient initially received Zosyn in the emergency department but this was discontinued due to penicillin allergy. His antibiotics were then changed to amikacin and Flagyl. Current antibiotics are now cefepime and Flagyl. Follow serial labsa.m. labs are pending For the present time we will use SCDs for DVT prevention until we are certain no procedural intervention will be performed Admission and Anticipated Discharge Date Admission Date: January 27, 2022 Supervising Physician Co-Signing Physician Notes I personally saw and evaluated the patient with Angel Grimes PA-C and agree with the assessment and plan 51-year-old male with acute sigmoid diverticulitis with contained perforation White blood cell count from 17 down to 13 today His tachycardia and fevers are also improved Abdominal exam with left-sided tenderness and guarding, improved from yesterday Continue to keep n.p.o. and give IV antibiotics and monitor his vital signs and abdominal exam He still may need laparotomy and colostomy if he does not improve or worsens clinically Subjective Patient is resting comfortably in bed. He does report a slight improvement of his left lower quadrant pain. He does continue to have an intermittent low- grade fever. He denies any nausea or vomiting. He says he has passed a small amount of flatus since admission. Physical Exam Gastrointestinal (Abdomen): Patient has continued pain in left lower quadrant but this appears to be somewhat less severe than what was noted at time of admission. Results & Data ([facility]) Vital Signs (Past 12 Hours) Vital Signs Temp Pulse Resp BP Pulse Ox 01/28/22 21:37 37.9 C H 100 H 18 142/93 H 94 PG Care Time/CCT Total # of Minutes Spent Total Time Spent with Patient: Total time spent is greater than 50% in coordination of care (as documented) at patient's floor/unit and/or counseling patient: Coding Level of Care Code 38197 Subseq Hosp Care Lvl 1 Diagnoses Diverticulitis K57.92
[2022-01-29 05:33] LABS: Basophils # (auto) 0.02 K/uL (0-0.2); Basophils % (auto) 0.2 %; Eosinophils # (auto) 0.17 K/uL (0-0.5); Eosinophils % (auto) 1.3 %; Hematocrit (blood only) 41.1 % (42-52); Hemoglobin 14.1 g/dL (14.0-18.0); Immature Granulocytes # (auto) 0.05 K/uL (0.00-0.02); Immature Granulocytes % (auto) 0.4 %; Lymphocytes # (auto) 1.89 K/uL (1.2-3.4); Lymphocytes % (auto) 14.4 %; Mean Corpuscular Hemoglobin 31.6 pg (25-34); Mean Corpuscular Volume 92.2 fL (80-100); Monocytes # (auto) 1.25 K/uL (0.11-0.59); Monocytes % (auto) 9.5 %; Neutrophils # (auto) 9.72 K/uL (1.4-6.5); Neutrophils % (auto) 74.2 %; Platelet Count 179 K/uL (130-400); RDW Coefficient of Variation 12.6 % (11.5-14.5); RDW Standard Deviation 42.6 fL (36.4-46.3); Red Blood Count 4.46 M/uL (4.7-6.1)
[2022-01-29 05:41] LABS: Mean Corpuscular Hgb Conc 34.3 g/dL (32-36)
[2022-01-29 05:58] LABS: BUN Creatinine Ratio 16.9 (10-20); Calcium 8.8 mg/dl (8.5-10.1); Creatinine Clr Calc Pharmacy 122.9 ml/min; Est GFR (African American) 113.9 ml/min; Est GFR (Non-African American) 98.3 ml/min; Potassium 4.1 mmol/L (3.5-5.1)
[2022-01-29] MEDS: FAMOTIDINE 20 MG in SYRINGE 3 ML IV SCH ×2 (09:37→21:09)
--- NOTE | 2022-01-29 13:11 | Hospitalist Progress Note ---
Date of Service January 29, 2022 Assessment & Plan (1) Perforation of sigmoid colon due to diverticulitis: Plan: Acute perforated sigmoid diverticulitis with phlegmon- WBC improving Continue LR 125 mils per hour NPO Continue cefepime and metronidazole (urine discoloration likely due to metronidazole) Patient to have penicillin allergy testing as outpatient as tolerated a dose ao Zosyn without any reaction. (2) Phlegmon: (3) GERD (gastroesophageal reflux disease): Plan: Continue famotidine 20 mg IV every 12 hourly (4) HTN (hypertension): Plan: Hold losartan. Hydralazine 10 mg IV every 4 hourly as needed for systolic blood pressure greater than 180. (5) Tachycardia: Plan: Secondary to underlying diverticulitis. Resolved Plan: VTE Prophylaxis - low risk, deferred due to high risk surgical candidate Diet - continue NPO Disposition - continued admission to med/surg Admission and Anticipated Discharge Date Admission Date: January 27, 2022 Subjective Having urine discoloration since starting on antibiotics as outpatient with associated strong odor. Otherwise remains NPO per surgery recommendations. Abdominal pain improving. No fever or chills. No nausea or vomiting. Review of Systems Review of Systems: All systems reviewed & are unremarkable except as noted in Subjective Physical Exam Constitutional: WD/WN, vitals as above Respiratory: normal respiratory effort, lungs clear to auscultation Cardiovascular: Rate/Rhythm: regular rate and regular rhythm Heart Sounds: no murmur Extremities: normal capillary refill; no calf tenderness and no pedal edema Gastrointestinal (Abdomen): Inspection/Auscultation: normal bowel sounds Percussion/Palpation: abdomen soft (LLQ (improved) without guarding or rebound tenderness); abdomen nontender and abdomen not rigid Musculoskeletal: no cyanosis or clubbing, extremities motor strength 5/5 Skin: no rashes, warm and dry Neurologic: moves all extremities and awake; not confused Psychiatric: A+Ox3, euthymic affect Results & Data Results & Data ([facility]) Vital Signs (Past 12 Hours) Vital Signs Temp Pulse Resp BP Pulse Ox 01/29/22 07:42 36.7 C 86 16 147/83 H 95 01/29/22 06:42 36.8 C 01/29/22 06:05 37.9 C H PG Care Time/CCT Total # of Minutes Spent Total Time Spent with Patient: Total time spent is greater than 50% in coordination of care (as documented) at patient's floor/unit and/or counseling patient: Coding Level of Care Code 08932 Subseq Hosp Care Lvl 2 Diagnoses Perforation of sigmoid colon due to diverticulitis K57.20 Phlegmon L02.91 GERD (gastroesophageal reflux disease) K21.9 HTN (hypertension) I10 Tachycardia R00.0
[2022-01-29] MEDS: ONDANSETRON INJ 2 MG/ML 2 ML VIAL IV PRN (17:41)
[2022-01-29] MEDS: MoRPHine SULFATE 4 MG/ML 1 ML CARP\\VIAL IV PRN (17:42)
[2022-01-29] MEDS ORDERED: diphenhydrAMINE 50 MG/ML VIAL IV ONE (21:45)
[2022-01-30] MEDS: CEFEPIME 2,000 MG in SYRINGE 0 ML IV SCH ×2 (00:30→14:29)
[2022-01-30] MEDS: metroNIDAZOLE 500 MG/100 ML BAG IV SCH ×3 (03:19→20:53)
[2022-01-30] MEDS: LACTATED RINGER'S 1,000 ML IV SCH ×3 (05:06→23:02)
[2022-01-30] MEDS: MoRPHine SULFATE 4 MG/ML 1 ML CARP\\VIAL IV PRN (06:16)
--- NOTE | 2022-01-30 06:24 | Electrocardiogram Report ---
Test Reason : Blood Pressure : / mmHG Vent. Rate : 114 BPM Atrial Rate : 114 BPM P-R Int : 152 ms QRS Dur : 136 ms QT Int : 354 ms P-R-T Axes : 025 -29 013 degrees QTc Int : 487 ms Sinus tachycardia Right bundle branch block Inferior infarct , age undetermined Abnormal ECG No previous ECGs available Confirmed by Joshua Pelayo ([id number]) on 01/30/2022 6:24:37 AM Referred By: REFERRED SELF Confirmed By:Joshua Pelayo
[2022-01-30 06:27] LABS: Basophils # (auto) 0.03 K/uL (0-0.2); Basophils % (auto) 0.4 %; Eosinophils # (auto) 0.41 K/uL (0-0.5); Eosinophils % (auto) 4.8 %; Hematocrit (blood only) 40.4 % (42-52); Hemoglobin 14.2 g/dL (14.0-18.0); Immature Granulocytes # (auto) 0.04 K/uL (0.00-0.02); Immature Granulocytes % (auto) 0.5 %; Lymphocytes # (auto) 1.96 K/uL (1.2-3.4); Mean Corpuscular Hemoglobin 31.1 pg (25-34); Mean Corpuscular Volume 88.4 fL (80-100); Mean Platelet Volume 10.8 fL (7.4-10.4); Monocytes # (auto) 0.81 K/uL (0.11-0.59); Monocytes % (auto) 9.5 %; Neutrophils # (auto) 5.26 K/uL (1.4-6.5); Neutrophils % (auto) 61.8 %; Platelet Count 226 K/uL (130-400); RDW Coefficient of Variation 12.6 % (11.5-14.5); RDW Standard Deviation 40.4 fL (36.4-46.3); Red Blood Count 4.57 M/uL (4.7-6.1); White Blood Count 8.51 K/uL (4.8-10.8)
[2022-01-30 06:32] LABS: Mean Corpuscular Hgb Conc 35.1 g/dL (32-36)
[2022-01-30 06:38] LABS: BUN Creatinine Ratio 19.4 (10-20); Calcium 8.5 mg/dl (8.5-10.1); Creatinine Clr Calc Pharmacy 151.9 ml/min; Est GFR (African American) 124.3 ml/min; Est GFR (Non-African American) 107.3 ml/min; Potassium 3.5 mmol/L (3.5-5.1)
--- NOTE | 2022-01-30 10:02 | Surgery Progress Note ---
Date of Service January 30, 2022 Assessment & Plan (1) Perforation of sigmoid colon due to diverticulitis: Plan: Patient still having some LLQ discomfort, but improved since admission WBC 8 (13). Patient afebrile since yesterday AM Continue IV abx today May trial clear liquids Will need to consider colonoscopy with GI and f/u with us in clinic for surgical planning as outpatient Admission and Anticipated Discharge Date Admission Date: January 27, 2022 Supervising Physician Co-Signing Physician Notes I personally saw and evaluated the patient with Kaleigh Gray PA-C and agree with the assessment and plan 51-year-old male with acute sigmoid diverticulitis with contained perforation White blood cell count from 13 down to 8 today His tachycardia and fevers are also resolved Abdominal exam with left-sided tenderness but this continues to improve We will trial clear liquids today to see how he tolerates this Subjective Patient feeling some intermittent shooting pains in the LLQ, but says it is overall much better than before. Passing some flatus. No BM. Physical Exam Physical Exam: awake/alert, NAD Gastrointestinal (Abdomen): Percussion/Palpation: + abdomen tender (ttp in LLQ) and abdomen soft Results & Data ([facility]) Vital Signs (Past 12 Hours) Vital Signs Temp Pulse Resp BP Pulse Ox 01/30/22 07:51 36.8 C 84 16 126/78 94 PG Care Time/CCT Total # of Minutes Spent Total Time Spent with Patient: Total time spent is greater than 50% in coordination of care (as documented) at patient's floor/unit and/or counseling patient: Coding Level of Care Code 49194 Subseq Hosp Care Lvl 1 Diagnoses Perforation of sigmoid colon due to diverticulitis K57.20
[2022-01-30] MEDS: FAMOTIDINE 20 MG in SYRINGE 3 ML IV SCH ×2 (10:17→21:08)
--- NOTE | 2022-01-30 11:57 | Hospitalist Progress Note ---
Date of Service January 30, 2022 Assessment & Plan (1) Perforation of sigmoid colon due to diverticulitis: Plan: Acute perforated sigmoid diverticulitis with phlegmon- WBC improving Continue LR 125 mils per hour -can likely discontinue days if tolerating clear liquids, will defer to surgery Clear liquids Continue cefepime and metronidazole (urine discoloration likely due to metronidazole) Patient to have penicillin allergy testing as outpatient as tolerated a dose ao Zosyn without any reaction. (2) Phlegmon: (3) GERD (gastroesophageal reflux disease): Plan: Continue famotidine 20 mg IV every 12 hourly (4) HTN (hypertension): Plan: Restart losartan. Hydralazine 10 mg IV every 4 hourly as needed for systolic blood pressure greater than 180. (5) Tachycardia: Plan: Secondary to underlying diverticulitis. Resolved Plan: VTE Prophylaxis - low risk, SCDs Diet -clear liquids Disposition - continued admission to med/surg Admission and Anticipated Discharge Date Admission Date: January 27, 2022 Subjective No nausea or vomiting. No fever or chills. Only having abdominal pain on palpation. Tolerating clear liquid diet this morning. Review of Systems Review of Systems: All systems reviewed & are unremarkable except as noted in Subjective Physical Exam Constitutional: WD/WN, vitals as above Respiratory: normal respiratory effort, lungs clear to auscultation Cardiovascular: Rate/Rhythm: regular rate and regular rhythm Heart Sounds: no murmur Extremities: normal capillary refill; no calf tenderness and no pedal edema Gastrointestinal (Abdomen): Inspection/Auscultation: normal bowel sounds Percussion/Palpation: + abdomen tender (LLQ (improved) without guarding or rebound tenderness) and abdomen soft; abdomen not rigid Neurologic: moves all extremities and awake; not confused Psychiatric: A+Ox3, euthymic affect Results & Data Results & Data ([facility]) Vital Signs (Past 12 Hours) Vital Signs Temp Pulse Resp BP Pulse Ox 01/30/22 07:51 36.8 C 84 16 126/78 94 PG Care Time/CCT Total # of Minutes Spent Total Time Spent with Patient: Total time spent is greater than 50% in coordination of care (as documented) at patient's floor/unit and/or counseling patient: Coding Level of Care Code 24054 Subseq Hosp Care Lvl 1 Diagnoses Perforation of sigmoid colon due to diverticulitis K57.20 Phlegmon L02.91 GERD (gastroesophageal reflux disease) K21.9 HTN (hypertension) I10 Tachycardia R00.0
[2022-01-30] MEDS ORDERED: diphenhydrAMINE HCl 12.5 MG/5 ML UDC PO ONE (21:00)
[2022-01-31] MEDS: CEFEPIME 2,000 MG in SYRINGE 0 ML IV SCH ×2 (00:54→12:44)
[2022-01-31] MEDS: metroNIDAZOLE 500 MG/100 ML BAG IV SCH ×2 (03:11→11:15)
[2022-01-31 07:21] LABS: Basophils # (auto) 0.04 K/uL (0-0.2); Basophils % (auto) 0.6 %; Eosinophils % (auto) 5.6 %; Hematocrit (blood only) 41.6 % (42-52); Hemoglobin 14.4 g/dL (14.0-18.0); Immature Granulocytes # (auto) 0.04 K/uL (0.00-0.02); Immature Granulocytes % (auto) 0.6 %; Lymphocytes % (auto) 30.6 %; Mean Corpuscular Hemoglobin 31.2 pg (25-34); Mean Corpuscular Hgb Conc 34.6 g/dL (32-36); Mean Corpuscular Volume 90.2 fL (80-100); Monocytes # (auto) 0.69 K/uL (0.11-0.59); Monocytes % (auto) 9.6 %; Neutrophils # (auto) 3.82 K/uL (1.4-6.5); Platelet Count 279 K/uL (130-400); RDW Coefficient of Variation 12.6 % (11.5-14.5); RDW Standard Deviation 41.9 fL (36.4-46.3); Red Blood Count 4.61 M/uL (4.7-6.1); White Blood Count 7.19 K/uL (4.8-10.8)
[2022-01-31] MEDS: LACTATED RINGER'S 1,000 ML IV SCH ×2 (07:58→15:41)
[2022-01-31 08:38] LABS: BUN Creatinine Ratio 13.9 (10-20); Calcium 8.7 mg/dl (8.5-10.1); Creatinine Clr Calc Pharmacy 138.5 ml/min; Est GFR (African American) 119.7 ml/min; Est GFR (Non-African American) 103.2 ml/min; Potassium 3.5 mmol/L (3.5-5.1)
[2022-01-31] MEDS: PANTOprazole 40 MG TAB PO SCH (08:52)
[2022-01-31] MEDS: LOSARTAN POTASSIUM 50 MG TAB PO SCH (08:52)
--- NOTE | 2022-01-31 08:56 | Surgery Progress Note ---
Date of Service January 31, 2022 Assessment & Plan (1) Perforation of sigmoid colon due to diverticulitis: Plan: He is much improved and remains with no leukocytosis and afebrile Advance to full liquids for lunch, low fiber diet for dinner if he tolerates lunch We will keep him here 1 more day for IV antibiotics, but anticipate discharge home tomorrow (2) Diverticulitis: (3) Acute localized peritonitis due to infection: Admission and Anticipated Discharge Date Admission Date: January 27, 2022 Subjective Patient seen and examined. Afebrile. No tachycardia. His pain is improved. He had a bowel movement. Review of Systems Constitutional: no fever and no chills Physical Exam Constitutional: WD/WN, vitals as above Respiratory: normal respiratory effort Cardiovascular: RRR, no murmur, no edema Gastrointestinal (Abdomen): Inspection/Auscultation: abdomen normal to inspection; abdomen not distended Percussion/Palpation: + abdomen tender (Minimal left lower quadrant, improved) and abdomen soft; no guarding and abdomen not rigid Musculoskeletal: no cyanosis or clubbing, extremities motor strength 5/5 Results & Data ([facility]) Vital Signs (Past 12 Hours) Vital Signs Temp Pulse Resp BP Pulse Ox 01/31/22 07:17 37.0 C 70 16 149/81 H 98 01/30/22 22:18 37.2 C 69 18 154/77 H 97 PG Care Time/CCT Total # of Minutes Spent Total Time Spent with Patient: Total time spent is greater than 50% in coordination of care (as documented) at patient's floor/unit and/or counseling patient: Coding Level of Care Code 81260 Subs Hosp Care Lvl 1 Diagnoses Perforation of sigmoid colon due to diverticulitis K57.20 Diverticulitis K57.92 Acute localized peritonitis due to infection K65.0
[2022-01-31] MEDS: FAMOTIDINE 20 MG in SYRINGE 3 ML IV SCH (09:55)
[2022-01-31] MEDS ORDERED: MELATONIN 3 MG TAB PO PRN (14:24)
--- NOTE | 2022-01-31 16:24 | Hospitalist Progress Note ---
Date of Service January 31, 2022 Assessment & Plan (1) Perforation of sigmoid colon due to diverticulitis: Plan: Acute perforated sigmoid diverticulitis with phlegmon- WBC improved Recommend stopping IV fluids Full liquids, advance per surgery recommendations Continue cefepime and metronidazole (urine discoloration likely due to metronidazole, will resolve on discontinuation as an outpatient Recommend discharge on Bactrim and metronidazole to finish antibiotic course ( recommend total 14 days of antibiotics from day of admission) as he is already failed outpatient fluoroquinolone treatments and has an "allergy" to penicillin. Patient to have penicillin allergy testing as outpatient as tolerated a dose ao Zosyn without any reaction. (2) Phlegmon: (3) GERD (gastroesophageal reflux disease): Plan: Continue pantoprazole 40 mg p.o. daily (4) HTN (hypertension): Plan: Continue losartan 50 mg p.o. daily. Hydralazine 10 mg IV every 4 hourly as needed for systolic blood pressure greater than 180. (5) Tachycardia: Plan: Secondary to underlying diverticulitis. Resolved. Plan: VTE Prophylaxis - low risk, SCDs Diet - full liquids, advance per surgery recommendations Disposition - continued admission to med/surg Thank for the consult. As discussed with Dr. Motta we will sign off at this time. Please call the [facility] physician group hospitalist on-call if the patient needs to be seen again. Admission and Anticipated Discharge Date Admission Date: January 27, 2022 Subjective No fever or chills. No abdominal pain without palpation. Main concern from patient is ability to sleep in the hospital. He takes a natural supplement containing melatonin at home and will prescribe this for him tonight. Review of Systems Review of Systems: All systems reviewed & are unremarkable except as noted in Subjective Physical Exam Constitutional: WD/WN, vitals as above Respiratory: normal respiratory effort, lungs clear to auscultation Cardiovascular: Rate/Rhythm: regular rate and regular rhythm Heart Sounds: no murmur Extremities: normal capillary refill; no calf tenderness and no pedal edema Gastrointestinal (Abdomen): Inspection/Auscultation: normal bowel sounds Percussion/Palpation: abdomen soft; abdomen nontender and abdomen not rigid Neurologic: moves all extremities and awake; not confused Psychiatric: A+Ox3, euthymic affect Results & Data Results & Data ([facility]) Vital Signs (Past 12 Hours) Vital Signs Temp Pulse Resp BP Pulse Ox 01/31/22 15:51 36.8 C 68 16 142/89 H 97 01/31/22 07:17 37.0 C 70 16 149/81 H 98 PG Care Time/CCT Total # of Minutes Spent Total Time Spent with Patient: Total time spent is greater than 50% in coordination of care (as documented) at patient's floor/unit and/or counseling patient: Coding Level of Care Code 56877 Subseq Hosp Care Lvl 1 Diagnoses Perforation of sigmoid colon due to diverticulitis K57.20 Phlegmon L02.91 GERD (gastroesophageal reflux disease) K21.9 HTN (hypertension) I10 Tachycardia R00.0
[2022-01-31] MEDS: metroNIDAZOLE 500 MG TAB PO SCH (21:18)
[2022-02-01] MEDS: CEFEPIME 2,000 MG in SYRINGE 0 ML IV SCH (00:33)
[2022-02-01 08:15] LABS: Basophils # (auto) 0.08 K/uL (0-0.2); Basophils % (auto) 0.9 %; Eosinophils # (auto) 0.37 K/uL (0-0.5); Eosinophils % (auto) 4.3 %; Hematocrit (blood only) 42.1 % (42-52); Hemoglobin 14.6 g/dL (14.0-18.0); Immature Granulocytes # (auto) 0.07 K/uL (0.00-0.02); Immature Granulocytes % (auto) 0.8 %; Lymphocytes # (auto) 2.42 K/uL (1.2-3.4); Lymphocytes % (auto) 27.9 %; Mean Corpuscular Hemoglobin 31.3 pg (25-34); Mean Corpuscular Hgb Conc 34.7 g/dL (32-36); Mean Corpuscular Volume 90.1 fL (80-100); Mean Platelet Volume 10.7 fL (7.4-10.4); Monocytes # (auto) 0.75 K/uL (0.11-0.59); Monocytes % (auto) 8.6 %; Neutrophils # (auto) 4.99 K/uL (1.4-6.5); Neutrophils % (auto) 57.5 %; Platelet Count 292 K/uL (130-400); RDW Coefficient of Variation 12.8 % (11.5-14.5); RDW Standard Deviation 42.2 fL (36.4-46.3); Red Blood Count 4.67 M/uL (4.7-6.1); White Blood Count 8.68 K/uL (4.8-10.8)
[2022-02-01 08:43] LABS: BUN Creatinine Ratio 13.3 (10-20); Calcium 8.9 mg/dl (8.5-10.1); Creatinine Clr Calc Pharmacy 131.8 ml/min; Est GFR (African American) 117.3 ml/min; Est GFR (Non-African American) 101.2 ml/min; Potassium 3.6 mmol/L (3.5-5.1)
--- NOTE | 2022-02-01 08:53 | Surgery Progress Note ---
Date of Service February 01, 2022 Assessment & Plan (1) Diverticulitis: Plan: He continues to improve and now without abdominal pain Still with no fevers and normal white blood cell count He is tolerating a low fiber diet without issue We will discharge the patient today with 2 weeks of p.o. antibiotics He is to follow-up with his family doctor, gastroenterology for colonoscopy in 6 to 8 weeks and he will see me in 1 month to check in to see how he is doing (2) Acute localized peritonitis due to infection: (3) Perforation of sigmoid colon due to diverticulitis: Admission and Anticipated Discharge Date Admission Date: January 27, 2022 Subjective Patient seen and examined. Denies abdominal pain. Tolerated low fiber diet. Has return of bowel function. Afebrile. Review of Systems Constitutional: no fever and no chills Physical Exam Constitutional: WD/WN, vitals as above Respiratory: normal respiratory effort Cardiovascular: RRR, no murmur, no edema Gastrointestinal (Abdomen): Inspection/Auscultation: abdomen normal to inspection; abdomen not distended Percussion/Palpation: abdomen soft; abdomen nontender, no guarding and abdomen not rigid Musculoskeletal: no cyanosis or clubbing, extremities motor strength 5/5 Results & Data ([facility]) Vital Signs (Past 12 Hours) Vital Signs Temp Pulse Resp BP Pulse Ox 02/01/22 07:55 37.0 C 69 16 157/75 H 97 01/31/22 23:06 36.9 C 74 16 143/83 H 98 PG Care Time/CCT Total # of Minutes Spent Total Time Spent with Patient: Total time spent is greater than 50% in coordination of care (as documented) at patient's floor/unit and/or counseling patient: Coding Level of Care Code 07807 Subseq Hosp Care Lvl 1 Diagnoses Diverticulitis K57.92 Acute localized peritonitis due to infection K65.0 Perforation of sigmoid colon due to diverticulitis K57.20
[2022-02-01] MEDS: LOSARTAN POTASSIUM 50 MG TAB PO SCH (08:54)
[2022-02-01] MEDS: metroNIDAZOLE 500 MG TAB PO SCH (08:54)
[2022-02-01] MEDS: PANTOprazole 40 MG TAB PO SCH (08:54)
--- NOTE | 2022-02-01 09:03 | Communication Note ---
Date of Service: February 01, 2022 Patient is a 51 yo male admitted under surgical service for diverticulitis with perforation. Surgery has asked GI to arrange patient for a colonoscopy. Our of [facility] will be in contact with Mr. Maddox to arrange a colonoscopy to occur in 6-8 weeks. Agree with SHER Yee as above F/U colonoscopy to be scheduled by my office Thanks.
--- NOTE | 2022-02-07 10:53 | Discharge Summary ---
Date of Service February 01, 2022 Principal Diagnosis acute perforated diverticulitis Discharge Exam awake/alert, no distress Gastrointestinal (Abdomen) Inspection/Auscultation: abdomen not distended Percussion/Palpation: abdomen soft; abdomen nontender Discharge Data Allergies Allergy/AdvReac Type Severity Reaction Status Date / Time Penicillins Allergy Unknown Rash Verified 01/27/22 23:38 Consultations 01/28/22 03:46 Consult Hospitalist Routine 02/01/22 08:55 Consult Gastroenterology Routine 02/01/22 10:35 Burn CD for patient Routine Ordered Studies 01/27/22 21:54 CT abd pelvis IV con only Stat Hospital Course (1) Perforation of sigmoid colon due to diverticulitis: This is a 51yM who was admitted to the [facility] on 01/27/22 with abdominal pain, found to have acute perforated sigmoid diverticulitis. The patient was made NPO with IVF and started on IV abx and was admitted under the surgical se rvice. The hospitalists were consulted for medical management throughout his stay. On admission WBC 22 and patient tender in the LLQ. Throughout patient's hospitalization his WBC, vitals, and physical exam were monitored. His WBC did downtrend daily while on IV abx. As the patient's symptoms and fevers improved he was started on clear liquids on 01/30/22. His diet was slowly advanced as tolerated as his pain and he continued to feel better. He started having + bowel function. On 02/01/22 the patient was deemed stable for discharge to home. WBC was 8 and patient was afebrile and overall feeling well. He was prescribed a course of oral antibiotic to complete at home with plans to follow up with GI for an outpatient colonoscopy in a couple of months and with Dr. Motta within 1 month for check up. Total Time Total Time Spent Total Time Spent (In Minutes): 15 Discharge Plan Discharge Items Patient Disposition: Home - Self-Care Reason For Visit: DIVERTICULITUIS Discharge Diagnosis: diverticulitis Activity: Per Instructions section Lifting: Gradually increase as tolerated Bathing: No limitations Exercise/Sports: Gradually increase as tolerated Driving/Machine Use: no driving while taking any narcotics for pain Non-emergency contact: Surgeon Call non-emergency contact if: you have any medication questions, your symptoms worsen, your pain is concerning for you, you have a fever and your temperature is above 101.5 Follow-up/Referrals: Chris Combs DO [Physician] - 03/22/22 11:00 am (Office will send a packet of information with instructions and time) Andres Motta DO [Physician] - 02/22/22 9:40 am () Goyo Merrill MD [Primary Care Provider] - Diet: Low Fiber Addtl Attending Provider Instructions: Addtl Cheesemaker Provider Instructions: Hospitalist instructions: Please discuss penicillin testing with your primary care physician with referral to an food and nutrition supervisor if necessary. You received Zosyn (a type of penicillin) during your admission without any allergic reaction. Pending Studies at Discharge: No Stand-Alone Forms: Evrent, Smoking Cessation Medications and DC Order Prescriptions: New sulfamethoxazole-trimethoprim [Bactrim DS] 800-160 mg tablet 1 tab PO Q12H 14 Days Qty: 28 RF: 0 metronidazole 500 mg tablet 500 mg PO TID 10 Days Qty: 30 RF: 0 Continued losartan 50 mg tablet 50 mg PO DAILY RF: 0 pantoprazole 40 mg tablet,delayed release (DR/EC) 40 mg PO DAILY RF: 0 multivitamin Tablet 1 tab PO DAILY RF: 0 acetaminophen [Tylenol Extra Strength] 500 mg Tablet 1,000 mg PO Q6H PRN (Reason: Pain) RF: 0 ascorbic acid (vitamin C) [Vitamin C] 250 mg Tablet 0 mg PO DAILY RF: 0 coenzyme Q10 [CoQ-10] 30 mg Capsule 0 mg PO DAILY RF: 0 cholecalciferol (vitamin D3) [Vitamin D3] 25 mcg (1,000 unit) Tablet 0 mcg PO DAILY RF: 0 Discontinued metronidazole 500 mg tablet 500 mg PO Q8 RF: 0 ciprofloxacin HCl 500 mg tablet 500 mg PO BID RF: 0 Discharge Orders: Discharge Order (Routine); Ordered 02/01/22 Ordered By: Dhiraj Borden/Other Patient Handouts: Low-Fiber Diet, Diverticulosis and Diverticulitis Admission Data Admit Date/Time: 01/27/22 23:54 Attending Provider: Andres Motta Admit Provider: Andres Motta Primary Care Provider: Goyo Merrill Other Providers: Bartolo Aguiar ; Luis F Rodas ; Chris Combs Other Interventions: Discharge Summary Assessment (RN) Last Done: 02/01/22 11:48 Coding Level of Care Code D/C DAY MANAGEMENT <30 MINS Diagnoses Perforation of sigmoid colon due to diverticulitis K57.20
== END 2022-02-01 12:39 | disposition home or self-care (01) | DRG 391 ==
LOC: ED 19:50 → 3N 23:54 → OBSVTOIN 23:54 → INTOOBSV 23:54 → 3N 01-28 03:25